=== PATIENT | female | born 1965 | race Hispanic/Latino ===

== ENCOUNTER 2017-11-05 14:05 | Emergency (ER) | payer BC ==
--- NOTE | 2017-11-05 17:34 | Emergency Department Report ---
- General Chief complaint: Wound/Laceration Stated complaint: NEEDLE IN BUTTOCKS Time Seen by Provider: 11/05/17 17:07 Source: patient, family Mode of arrival: Ambulatory Limitations: No Limitations - History of Present Illness Initial comments: Patient here reports that possible needle fragment into right buttocks. She said she takes hormone shot monthly and she thinks the need was in her butt. said he used one that can merchandise pickup/receiving [facility] and relieved over her bottom but nothing since. Patient denies any pain. Denies any redness or swelling. Denies any foreign body sensation. Immunizations up-to-date per patient MD complaint: foreign body (possible) -: This afternoon Tetanus Up to Date: yes Location: buttocks (right) Severity scale (0 -10): 0 Context: other ( Thinks that she possible needle FB in rt buttocks. Could not fing needle after giving injection) Associated symptoms: denies other symptoms Treatments Prior to Arrival: other (attempted to look for object without any success.) - Related Data Home Medications Medication Instructions Recorded Confirmed Last Taken No Known Home Medications [No 11/05/17 11/05/17 Unknown Reported Home Medications] Allergies Allergy/AdvReac Type Severity Reaction Status Date / Time No Known Allergies Allergy Unverified 11/05/17 14:27 Abscess Boil HPI - HPI Chief Complaint: Wound/Laceration Stated Complaint: NEEDLE IN BUTTOCKS Time Seen by Provider: 11/05/17 17:07 Home Medications: Home Medications Medication Instructions Recorded Confirmed Last Taken No Known Home Medications [No 11/05/17 11/05/17 Unknown Reported Home Medications] Allergies/Adverse Reactions: Allergies Allergy/AdvReac Type Severity Reaction Status Date / Time No Known Allergies Allergy Unverified 11/05/17 14:27 ED Review of Systems ROS: Stated complaint: NEEDLE IN BUTTOCKS Other details as noted in HPI Constitutional: denies: chills, fever Eyes: vision change Respiratory: denies: cough, shortness of breath, SOB with exertion, SOB at rest , wheezing Cardiovascular: denies: chest pain, palpitations Gastrointestinal: denies: abdominal pain, nausea, diarrhea Genitourinary: denies: urgency, dysuria, discharge Musculoskeletal: denies: back pain, joint swelling, arthralgia Skin: other (foreign body in right buttocks). denies: rash, lesions Neurological: paresthesias. denies: abnormal gait ED Past Medical Hx - Past Medical History Previous Medical History?: Yes Hx Hypertension: Yes Additional medical history: GRAVES - Surgical History Additional Surgical History: THYROIDECTOMY - Family History Family history: hypertension - Social History Smoking Status: Current Every Day Smoker Substance Use Type: None Other Social History: , lives with - Medications Home Medications: Home Medications Medication Instructions Recorded Confirmed Last Taken Type No Known Home Medications [No 11/05/17 11/05/17 Unknown History Reported Home Medications] ED Physical Exam - General Limitations: No Limitations, Language Barrier ED Course Vital Signs 11/05/17 14:27 Temperature 98.7 F Pulse Rate 96 H Respiratory 18 Rate Blood Pressure 165/81 O2 Sat by Pulse 96 Oximetry - Reevaluation(s) Reevaluation #1: 11/05/17 18:28 Patient is stable she had x-ray of her pelvis bilateral and it showed no radiopaque foreign body. This is communicated to patient and . She is still not having any feeling of foreign body sensation or any pain at site. Critical care attestation.: If time is entered above; I have spent that time in minutes in the direct care of this critically ill patient, excluding procedure time. ED Disposition Clinical Impression: Concern about skin disease without diagnosis Disposition: DC-01 TO HOME OR SELFCARE Is pt being admited?: No Does the pt Need Aspirin: No Condition: Stable Instructions: Normal Exam (ED) Additional Instructions: Radiology report suggested that you have no foreign body in your right buttocks as he is suspected Pre-primary care physician in 2-3 days Referrals: PRIMARY CARE, [Primary Care Provider] - 2-3 Days Forms: Accompanied Note, Work/School Release Form(ED)
--- NOTE | 2017-11-05 18:15 | XRay Report ---
FINAL REPORT EXAM: XR PELVIS 1-2V HISTORY: pt reports possible needle in RT buttocks TECHNIQUE: X-ray pelvis four views PRIORS: None. FINDINGS: No fracture is identified. The joint spaces are within normal limits. No focal bony lesion identified. No radiopaque foreign body seen. IMPRESSION: No radiopaque foreign bodies are identified
[2017-11-05 18:41] VITALS: BP 154/74
== END 2017-11-05 18:40 | disposition home or self-care (01) ==
LOC: ED 14:05
DX: Z71.1 Person with feared health complaint in whom no diagnosis is made (principal); I10 Essential (primary) hypertension; F17.200 Nicotine dependence, unspecified, uncomplicated
CPT/HCPCS: 72170